=== PATIENT | male | born 1955 | race Caucasian/White ===

== ENCOUNTER 2018-05-15 21:33 | Emergency (ER) | payer OTHER ==
[~2018-05-15] VITALS: Ht 172.7 cm; Wt 75.7 kg
--- NOTE | 2018-05-15 21:37 | NUR ---
DR. ESTRADA AT BEDSIDE FOR MSE.
--- NOTE | 2018-05-15 21:47 | NUR ---
PATIENT BIB [facility] FROM HOME FOR NEAR SYNCOPAL EPISODE, PATIENT DID NOT PASS OUT, NO FALL. PATIENT FELT DIZZY AND SAT DOWN. DENIES ANY CHEST PAIN OR SHORTNESS OF BREATH AT THIS TIME. PATIENT DOES C/O TOOTHACHE. PATIENT IS VISITNG FROM [facility], UNABLE TO GO TO DENTIST.
[2018-05-15 21:56] LABS: BASOPHILS % (AUTO) 0.3 % (0.0-2.0); HEMATOCRIT 30.4 % (36.7-47.1); HEMOGLOBIN 10.2 g/dL (12.5-16.3); LYMPHOCYTES # (AUTO) 1.5 K/uL (20.0-40.0); LYMPHOCYTES % (AUTO) 8.4 % (20.5-51.5); MEAN CORPUSCULAR HEMOGLOBIN 28.9 uug (23.8-33.4); MEAN CORPUSCULAR HGB CONC 34 g/dL (32.5-36.3); MEAN CORPUSCULAR VOLUME 85.9 fL (73.0-96.2); MONOCYTES # (AUTO) 1.4 K/uL (2.0-10.0); NEUTROPHILS # (AUTO) 14.5 K/uL (1.8-8.9); NEUTROPHILS % (AUTO) 83.3 % (38.5-71.5); PLATELET COUNT (AUTO) 220 K/uL (152-348); RED BLOOD CELL COUNT(AUTO) 3.53 MIL/uL (4.06-5.63); WHITE BLOOD COUNT (AUTO) 17.4 K/uL (3.6-10.2)
[2018-05-15 22:18] LABS: POTASSIUM 4.4 mmol/L (3.5-5.1)
[2018-05-15 22:22] LABS: BILIRUBIN,DIRECT 0.1 mg/dL (0.0-0.2); BILIRUBIN,TOTAL 0.4 mg/dL (0.2-1.0); TOTAL PROTEIN, SERUM 8.3 g/dL (6.4-8.2)
[2018-05-15] MEDS ORDERED: AMOXICILLIN-CLAVUL 875-125MG TABLET PO ONE (22:30)
[2018-05-15] MEDS ORDERED: IV NORMAL SALINE 1000 ML BAG IV ONE (22:30)
[2018-05-15] MEDS ORDERED: AMOXICILLIN-CLAVUL 875-125MG TABLET ONE (22:45)
[2018-05-15] MEDS ORDERED: VALS1TAB77 PO (22:47)
[2018-05-15] MEDS ORDERED: SANDOZ PO (22:47)
[2018-05-15] MEDS ORDERED: LEVO75TA PO (22:47)
[2018-05-15] MEDS ORDERED: DIAMICRON PO (22:47)
[2018-05-15] MEDS ORDERED: METF-440 PO (22:47)
[2018-05-15] MEDS ORDERED: EZET10TA13 PO (22:47)
[2018-05-15] MEDS ORDERED: NPH,100V2 SUBCUT (22:47)
[2018-05-15] MEDS ORDERED: SITA50TA PO (22:47)
--- NOTE | 2018-05-16 02:15 | NUR ---
Patient discharged to home in stable conditon. Written and verbal after care instructions given. Patient verbalizes understanding of instructions. PATIENT LEFT WITH STABLE GAIT.
[2018-05-16 02:16] VITALS: BP 95/60
== END 2018-05-16 02:17 | disposition home or self-care (01) ==
LOC: ER 21:35
DX: R55 Syncope and collapse (principal); N28.9 Disorder of kidney and ureter, unspecified; K04.7 Periapical abscess without sinus
CPT/HCPCS: 36415 ×2; 71045; 80048; 80076; 83605; 84484 ×2; 85025; 87040 ×2; 93005; 96360; 99285; A4663; J7030; 70030-TC